=== PATIENT | male | born 1990 | race American Indian/Alaskan Native ===

== ENCOUNTER 2017-05-28 15:41 | Emergency (ER) | payer OTHER ==
[2017-05-28 15:56] VITALS: BP 139/76
--- NOTE | 2017-05-28 16:36 | Emergency Department Report ---
ED Recheck HPI - General Chief Complaint: Urogenital-Male Stated Complaint: STD TEST Time Seen by Provider: 05/28/17 16:34 Source: patient Mode of arrival: Ambulatory Limitations: No Limitations - History of Present Illness Initial Comments: Patient presented to the emergency room said that he had unsafe sex a few days ago and he is concerned about getting STD. Patient states that his partner does not have any symptoms nor does he. He denies urinary burning, frequency or urgency. Denies any back pain or abdominal pain. Denies any nausea or vomiting. Denies any fever or chills. Denies any sore throat, cough or shortness of breath. Denies any penile discharge, penile rash. Denies any scrotal abnormality. He said that he just thought that he would have STD tests done for gonorrhea and chlamydia just in case. Patient denies any medical problem. Complaint: other (requested STD evaluation) Initial Visit For: other (concern for STD with no symptoms) Returns Today for: other (requested STD evaluation) Symptoms Since Prior Visit: no new symptoms Associated Symptoms: none Treatments Prior to Arrival: other (first visit) - Related Data Allergies Allergy/AdvReac Type Severity Reaction Status Date / Time No Known Allergies Allergy Unverified 05/28/17 15:56 ED Review of Systems ROS: Stated complaint: STD TEST Other details as noted in HPI Comment: All other systems reviewed and negative Constitutional: no symptoms reported ENT: denies: throat pain Respiratory: no symptoms reported Cardiovascular: denies: chest pain, palpitations, dyspnea on exertion, edema, syncope, paroxysmal nocturnal dyspnea Genitourinary: denies: urgency, dysuria, frequency, hematuria, discharge, testicular pain, testicular mass Musculoskeletal: denies: back pain, arthralgia Neurological: denies: headache ED Past Medical Hx - Past Medical History Previous Medical History?: No - Surgical History Past Surgical History?: No - Family History Family history: no significant - Social History Smoking Status: Never Smoker Substance Use Type: Marijuana ED Physical Exam - General Limitations: No Limitations General appearance: alert, in no apparent distress - Head Head exam: Present: atraumatic, normocephalic, normal inspection - Eye Eye exam: Present: normal appearance, PERRL, EOMI Pupils: Present: normal accommodation - ENT ENT exam: Present: normal exam, normal orophraynx, mucous membranes moist, TM's normal bilaterally, other - Neck Neck exam: Present: normal inspection, full ROM. Absent: tenderness, meningismus, lymphadenopathy - Respiratory Respiratory exam: Present: normal lung sounds bilaterally. Absent: respiratory distress, chest wall tenderness - Cardiovascular Cardiovascular Exam: Present: regular rate, normal rhythm, normal heart sounds. Absent: systolic murmur, diastolic murmur - GI/Abdominal GI/Abdominal exam: Present: soft, normal bowel sounds. Absent: distended, tenderness, guarding, rebound, rigid, organomegaly, mass, bruit, pulsatile mass , hernia - Extremities Exam Extremities exam: Present: normal inspection, full ROM, normal capillary refill. Absent: tenderness, pedal edema, joint swelling, calf tenderness - Back Exam Back exam: Absent: CVA tenderness (R), CVA tenderness (L) - Neurological Exam Neurological exam: Present: alert, oriented X3, normal gait - Psychiatric Psychiatric exam: Present: normal affect, normal mood - Skin Skin exam: Present: warm, dry, intact, normal color. Absent: rash ED Course Vital Signs 05/28/17 15:52 Temperature 98.3 F Pulse Rate 80 Respiratory 18 Rate Blood Pressure 139/76 O2 Sat by Pulse 98 Oximetry - Reevaluation(s) Reevaluation #1: 05/28/17 16:35 Patient had an uneventful ED stay ED Recheck MDM - Medical Decision Making Patient here reports that he wants to be tested because he had unprotected sex and thinks that he needs to be treated. Physical findings for healthy male. Patient has no symptoms of penile discharge, testicular scrotal abnormality, no urinary burning frequency or urgency, no abdominal or back pain. No nausea vomiting or fever or chills. He said he just wants to get checked. I discussed the patient. Facility today he can go for STD test then and also that I'll send off a gonorrhea and chlamydia tests Via a urine which will take 5 -7 days and if he does not get a response from us in 5 to 7 days to return to the emergency room with his ID and they will do rectum to medical records where he can tile picker his test results. I discussed the patient based on the CDC guidelines if he is not having any symptoms and was not told that he was exposed to STD that there is no need to be treated on till he gets is resolved back. Patient given information on clinics that he can go to which his call the [facility] in [place] and told that they do several different services such as medical, dental, STD testing etc. he voiced understanding and discharged home in stable condition Critical care attestation.: If time is entered above; I have spent that time in minutes in the direct care of this critically ill patient, excluding procedure time. ED Disposition Clinical Impression: Screening examination for STD (sexually transmitted disease) Disposition: - TO HOME OR SELFCARE Is pt being admited?: No Does the pt Need Aspirin: No Condition: Stable Instructions: Sexually Transmitted Diseases (ED), Safe Sex (ED) Additional Instructions: Please practice safe sex The information given in discharge instruction paperwork [facility] that he can go to [facility] [place] medical, dental, mental health and sexual health problems. Please call and schedule an appointment for annual male exam. Referrals: [facility] [Other] - 2-3 Days [facility] [Outside] - 2-3 Days Forms: Work/School Release Form(ED)
[2017-05-28 16:58] LABS: Bilirubin,Urine NEG (Negative); Blood,Urine NEG (Negative); Ketones,Urine NEG (Negative); Leukocyte Esterase,Urine NEG (Negative); Mucus,Urine FEW /HPF; Nitrite,Urine NEG (Negative); Protein,Urine <15 mg/dL mg/dL (Negative); WBC,Urine < 1.0 /HPF (0.0-6.0)
== END 2017-05-28 17:04 | disposition home or self-care (01) ==
LOC: ED 15:41
DX: Z11.3 Encounter for screening for infections with a predominantly sexual mode of transmission (principal); F12.10 Cannabis abuse, uncomplicated
CPT/HCPCS: 81001; 87591; 99283